=== PATIENT | male | born 1960 | race Caucasian/White ===

== ENCOUNTER → 2021-11-30 16:04 | Outpatient (CLI) | payer BC, SELFPAY ==
[2021-11-30 18:03] LABS: Prostate Specific Antigen 3.61 ng/mL (0.10-4.00)
== END ==
PROVIDERS: PCP Family Medicine; Referring Provider Specialist; Visit Provider Specialist
DX: R97.20 Elevated prostate specific antigen [PSA] (principal); N43.3 Hydrocele, unspecified; N40.1 Benign prostatic hyperplasia with lower urinary tract symptoms; N13.8 Other obstructive and reflux uropathy; R33.9 Retention of urine, unspecified
CPT/HCPCS: 36415; 51798; 81002; 84153; 99214

== ENCOUNTER → 2022-05-03 10:38 | Outpatient (CLI) | payer BC, SELFPAY ==
[2022-05-03 11:12] LABS: Appearance Urine UA SL CLOUDY; Bilirubin Urine UA NEGATIVE (NEGATIVE); Color Urine UA YELLOW; Glucose Urine UA NEGATIVE (Negative); Ketones Urine UA NEGATIVE (NEGATIVE); Leukocyte Esterase Urine UA 3+ (NEGATIVE); Nitrite Urine UA POSITIVE (Negative); Occult Blood Urine UA 3+ (Negative); Protein Urine UA TRACE (Negative); Specific Gravity Urine UA <=1.005 (1.000-1.035); Urobilinogen Urine UA 0.2 E.U./dL (0.2); pH Urine UA 6.5 (4.5-8.0)
[2022-05-03 11:52] LABS: Bacteria Urine Many (>30); Culture Indicated Urine Specimen Cultured; RBC Urine 5-10/HPF (0-5/HPF); WBC Urine 10-30/HPF (0-5/HPF)
== END ==
PROVIDERS: PCP Family Medicine; Visit Provider Specialist
DX: R30.0 Dysuria (principal); R33.9 Retention of urine, unspecified; N40.1 Benign prostatic hyperplasia with lower urinary tract symptoms; N13.8 Other obstructive and reflux uropathy; N35.912 Unspecified bulbous urethral stricture, male
CPT/HCPCS: 52000; 81001; 87077; 87086; 87186

== ENCOUNTER → 2022-05-12 14:01 | Outpatient (CLI) | payer BC, SELFPAY ==
[2022-05-12 15:03] LABS: COVID19 -Nasal RAPID Negative (Negative)
== END ==
PROVIDERS: PCP Family Medicine; Visit Provider Specialist
DX: Z20.822 Contact with and (suspected) exposure to COVID-19 (principal)
CPT/HCPCS: 87635; C9803

== ENCOUNTER 2022-05-15 11:38 | Day surgery (SDC) | payer BC, SELFPAY ==
[2022-05-09 14:46] VITALS: BMI 21.6
[2022-05-15] VITALS (14 sets, daily range): BP systolic 88–132; BP diastolic 53–78; PULSE 56–71; RESP 10–20; TEMP 35.8–36.7; O2SAT 96–100; BMI 21.6
--- NOTE | 2022-05-15 | PATH_ITS ---
[facility] Accession Number: [id number] . 01 Material submitted: . prostate - PROSTATE CHIPS . 01 Diagnosis: Prostate Chips (17 grams), Transurethral Resection: Benign prostatic hyperplasia. No evidence of malignancy. MRV 05/18/2022 1212 Local . 01 Electronically signed: . Tati Lindsey MD, Pathologist NPI- [id number] . 01 Gross description: . Received in formalin labeled with the patient's name and prostate chips consists of 17 grams, multiple fragments of pink-wolfe rubbery soft tissue aggregating to 6.9 x 5.8 x 2.1 cm. The specimen is submitted entirely in cassettes A1-A9. ([id number]) /V 05/16/2022 1642 Local . 01 Pathologist provided ICD-10: R33.9, N40.0 . 01 CPT . 923989 Specimen Comment: A courtesy copy of this report has been sent to [phone] Performed at: [facility] [address] [place] [address], [place], [place] [id number] MD Wilmer Garcia MD Phone: [phone]
[2022-05-15] MEDS: SODIUM CHLORIDE IRRIG SOLUTION 500 ML, NEOMYCIN/POLYMYXIN B IRR 1 ML IRR (12:30)
[2022-05-15] MEDS: LACTATED RINGERS 1,000 ML 100 ML IV (12:34)
[2022-05-15] MEDS: GENTAMICIN 160 MG in SODIUM CHLORIDE 0.9% 100 ML 104 MG IV (12:58)
--- NOTE | 2022-05-15 13:42 | PM.PREOP ---
Pre-operative Note COVID-19 Criteria for continued procedure: Expected advancement of disease process, Increased loss of function, Deterioration of the patient's condition or overall health, Delay expected to result in less-positive ultimate med/surg outcome and Non-surgical alternatives not available or appropriate per current SOC Interval Note History & Physical reviewed/Exam performed by Physician: Yes Changes to H&P: No
[2022-05-15] MEDS: TRANEXAMIC ACID 1,000 MG in SODIUM CHLORIDE 0.9% 100 ML 200 MG IV (14:18)
[2022-05-15] MEDS: AMPICILLIN/SULBACTAM 3 GM 3 GM in SODIUM CHLORIDE 0.9% 100 ML IV (14:20)
--- NOTE | 2022-05-15 14:35 | SUR.OPER ---
Lithotomy on padded OR bed, head on pillow, arms secured on padded arm boards at <90 degrees abduction. Legs secured in padded yellow fins stirrups. Directed and approved by surgeon
[2022-05-15] MEDS: BELLADONNA/OPIUM SUPPOSITORIES 1 EACH PR (14:40)
--- NOTE | 2022-05-15 16:05 | P.OP_ITS ---
Operative Date/Time/Diagnoses Date of procedure: 05/15/22 Time of procedure: 15:45 Pre-op diagnosis: 1. Urinary retention Post-op diagnosis: same Procedure & Clinicians Procedure: 1. Transurethral resection of prostate. Same procedure as scheduled: Yes Indications: 1. Urinary retention Surgeon: Thomas Gonzalez Click Yes if Unassisted: Yes Anesthesia Type: Spinal Operative Notes Findings: 1. Urethra-normal penile and distal bulbar is segment. There is a 20-22 Ivorian annular proximal bulbar stricture gently dilated upon passage of the resectoscope. Closure Type: not applicable Specimen(s): other (TUR prostate chips) Applied: catheter ([address] hematuria catheter to continuous bladder irrigation.) Estimated Blood Loss (mL): 50 Blood products transfused: none Procedure in detail: The patient was positioned in supine following successful placement of spinal anesthetic. The lower abdomen, genitalia, and groin were then prepped and draped in sterile fashion. Resectoscope was then advanced lower urinary tract w ith the findings as described above. The working element was then fitted with the resecting loop. Transurethral incisions were then made at 1 and 11 o'clock. locations to the depth of the capsule from bladder neck to approximately the verumontanum. The intervening anterior adenomatous tissue was then resected. Next, the left lateral lobe was resected from the 1-6 o'clock locations. Next, the right lateral lobe was resected from 11 to 6 o'clock. Resection was conducted from the bladder neck to vicinity adjacent to the verumontanum. Surgical capsule was trans ended and 1 small area at the right anterior and distal aspect of the resection. Hemostasis was attained with electric cautery. Apical kissing lateral lobes were left on resected. All chips and clots were then meticulously removed from the bladder and prostatic fossa using the [employer] he evacuator and with mechanical removal of with the TUR loop. The bladder was then left partially filled and the resectoscope was removed. A [address] hematuria catheter was then advanced in the bladder over a stylet. The balloon was inflated to 30 cc. The catheter was then hand irrigated clear. It was then connected to normal saline continuous bladder irrigation and gravity outflow. The patient was then repositioned in supine, was transferred to [place] [facility], and then was transported to PACU in stable condition. Complications: none Post-operative Condition: stable Disposition: PACU Plan for aftercare: Admit to acute care.
[2022-05-15] MEDS: MEPERIDINE 50 MG/ML INJ 12.5 MG IV ×2 (16:31→16:35)
--- NOTE | 2022-05-15 17:42 | PC.NURSE ---
Assess- Patient admitted to the floor with a TURP. He has a 3 way mallory with NS irrigation infusing through mallory to keep urine color pink to clear colored. He is on LR at 125cc/hr and tolerating this well. He had a spinal and is able to wiggle his feet bilaterally and states that he does have some mild feeling to legs. Patient is eating and tolerating food well. He denies pain and his is at bedside.
[2022-05-15] MEDS: LACTATED RINGERS 1,000 ML 125 ML IV (18:06)
[2022-05-15] MEDS: OXYCODONE IR 5 MG TABLET PO (21:33)
[2022-05-15] MEDS: ACETAMINOPHEN 325 MG TABLET 650 MG PO (23:38)
[2022-05-16] MEDS: LACTATED RINGERS 1,000 ML 125 ML IV (01:46)
[2022-05-16 04:45] VITALS: BP 120/72; PULSE 55; RESP 14; TEMP 36.3; O2SAT 97
--- NOTE | 2022-05-16 06:44 | PC.NURSE ---
Shift Note: Patient was alert and orientedx4, with episodes of penile pain, pain meds given as ordered. No signs of distress. Vital signs are stable and within acceptable limits. On CBI, with pinkish output. Call caldwell within reach.
[2022-05-16 08:00] VITALS: BP 143/82; PULSE 65; RESP 17; TEMP 36.7; O2SAT 99
--- NOTE | 2022-05-16 08:03 | P.DS_ITS ---
History of Present Illness History of Present Illness Date Patient Seen: 05/16/22 Time Patient Seen: 07:30 Chief complaint: OPB Narrative: The patient is a 61-year-old male admitted on 05/15/2022, and underwent uncomplicated transurethral resection of prostate for urinary retention and failure medical therapy. Discharge Providers Provider Discharge Date: 05/16/22 Primary care physician: Ihsan Haque MD Discharge provider: Thomas Gonzalez MD Summary Hospital Course Discharge Diagnosis: 1. Urinary retention. 2. Failure medical therapy. Hospital Course: Patient was admitted on 05/15/2022 and underwent uncomplicated transurethral resection of the prostate under spinal anesthesia. His postoperative course was unremarkable in that he tolerated general diet, was able to ambulate independently, and had no clinical challenges with postoperative pain management. Pathology report was pending at discharge. Status at Discharge Cognitive/behavioral status at discharge: oriented Functional status at discharge: independent ambulation Overall status at discharge: patient is back to baseline Exam Vital Signs (past 8 hours): - 05/16/22 04:45 05/16/22 08:00 Temperature 97.3 F L 98.1 F Pulse Rate 55 L 65 Respiratory Rate 14 17 Blood Pressure 120/72 143/82 H Pulse Oximetry 97 99 Oxygen Flow Rate 0 0 Oxygen Delivery Method Room Air Oxygen Flow Rate 0 Narrative Exam Narrative: Well-developed, well-nourished male in no distress and appearing younger than stated age. Chest-equal unlabored expansion bilaterally. Heart-normal sinus rhythm. Abdomen-nondistended and nontender. Today Clark-out flow is light pink tinged without clots. [facility] Medical History Bilateral hydrocele BPH w urinary obs/LUTS Bulbous urethral stricture Gout Hydrocele Incomplete bladder emptying Right hydrocele Urinary retention Family History Mother Hearing impaired Father Hypertension Social History marital status: number of children: 3 household members: none Previous occupational history: Retired Smoking Status: Never smoker alcohol intake: current caffeine: Yes Type(s) of exercise: walking frequency: daily Discharge Assessment & Plan Assessment and Plan Assessment: 1. Stable postoperative day 1. Status post transurethral resection of prostate. 2. Pathology pending. Plan of Treatment: 1. Discharge home later today. 2. Supervised outpatient voiding trial will be arranged in the Urology Clinic for 05/18/2022. 3. Follow-up by phone when pathology report final. Discharge Plan Discharge Plan Patient Disposition: Home Provider Discharge Comment: Contact the urology clinic later today to schedule voiding trial in the Urology Clinic on 05/18/2022. Discharge orders & Medications Discharge Orders: Discharge (Order); Ordered 05/16/22 Ordered By: Thomas Gonzalez Prescriptions: New cephalexin 250 mg capsule 250 mg PO BID Qty: 10 0RF oxycodone 5 mg tablet 5 mg PO Q4H PRN (Reason: pain) Qty: 14 0RF Continued tamsulosin 0.4 mg capsule 0.4 mg PO DAILY Magnesium Complex 300 mg magnesium tablet 320 mg PO DAILY Follow up/Referrals: Ihsan Haque MD [Primary Care Provider] - Diet/Activity/Treatments Diet: Diet as Tolerated Activity: No lifting greater than 15 lb x 4 weeks. Catheter: 3-way Clark Catheter comment: Use leg bag during day. He has large bag at night and when in home. Skin/Wound/Dressing Care Report to your healthcare provider any signs of infection, such as:: chills, fever, night sweats, increased pain and unusual drainage Visit Report/Discharge Packet Instructions: How to Care for Your Clark Catheter -- Male, DI for Transurethral Resection of the Prostate Stand Alone Forms: Surgery Discharge Discharge Data Primary Care Provider: Ihsan Haque Attending Provider: Thomas Gonzalez VTE Deep Vein Thrombosis/Pulmonary Embolism Present on Admission: No
[2022-05-16 08:06] VITALS: PULSE 71; RESP 16; O2SAT 99
[2022-05-16] MEDS: TAMSULOSIN 0.4 MG CAPSULE PO (08:28)
--- NOTE | 2022-05-16 08:34 | PC.NURSE ---
Patients irrigation to mallory stopped along with ivf. Plug put in end of this. Patients mallory is with tension and patient denies pain but states that he feels irritation. His urine is light pink at this time. We will also walk patient in halls today. will come back around lunch time to see patient again. Before he goes home, will do leg bag teaching.
--- NOTE | 2022-05-16 12:03 | CM.DANOTE ---
DCP Note: Payor: VENKAT Sims PCP: MD Garland Pt is a 61 y.o. M admitted for status post TURP. Pt has past medical history of BPH, gout, hydrocele bilateral, Urinary retention. Per MD, pt is medically stable for discharge this afternoon. DCP met with pt this afternoon bedside. Pt was sitting up in chair watching TV. DCP introduced herself and role. Pt states that he is independent at baseline. Pt states he still drives POV. Pt states that he lives in a 1 story house in [place]. Pt states that his sister or brother is going to pick him up today once he is discharged. Pt declines any needs at this time. White board updated and instructed to call with any other questions that may arise. P: Once pt is medically clear this afternoon, pt is to discharge home via sister or brother POV. Callie Machuca RN/ZAIRA Discharge Planning/Care Management Advanced directive, confirm from FAMILY Start: 05/15/22 17:27 Freq: Q24H Status: Active Protocol: Document 05/15/22 17:31 CLL (Rec: 05/15/22 17:36 CLL [id number]) Advance Directive, confirm on record Time 17:36 Person contacted Patient Copy received No CM Discharge Assessment Start: 05/16/22 12:02 Freq: Status: Active Protocol: Document 05/16/22 12:02 AJ (Rec: 05/16/22 12:03 AJ [id number]) Discharge Planning Assessment Assigned Biopharmaceutical Rep Callie Machuca RN/ZAIRA Advance Directives? Yes Advance Directives on File No History Provided By Patient Prior Living Arrangements House Household Members none Type of transporation used prior to Drives own vehicle admit Independent with ADL's Yes Is patient alert and oriented? Yes Caregiver for Another No DME Already Rented / Owned FWW / Walker Barriers to Discharge No Discharge Plan Home Referrals Initiated None needed Whiteboard Updated in Patient Room with Yes name and ext. # of Biopharmaceutical Rep Comment Instructed to call Review Status In Process Please Provide Date Initial DC 05/16/22 Assessment Was Performed Next Review Type Continued Stay Review Pre-Anesthesia Assessment Start: 05/09/22 14:46 Freq: Status: Active Protocol: Document 05/09/22 14:46 CAB (Rec: 05/09/22 14:51 CAB [id number]) Pre-Anesthesia Assessment Patient Information Reviewed Via Chart Review Comment COVID screen @ 05/12/22 Primary Care Provider Ihsan Haque Seen Specialist in Last 12 Months Yes Specialist Seen Urologist Primary Language Czech [employer] Sportscaster Required No Height 180.34 cm Weight 70.307 kg Body Mass Index (BMI) 21.6 Barriers to Learning None Anesthesia Review Requested No Stonemason Supervisor No alcohol intake current alcohol intake frequency a few times a month Smoking Status Never smoker History of Falling (Recent or History of No ) Patient is completely paralyzed or No completely immobile Mental Status Oriented to own ability Hx Sleep Apnea No Currently Taking a Beta Raul No Anti-Coagulant Therapy No Cardiac Testing No Hx Pacemaker/ICD No Pacemaker Rep Required? No Bladder Pattern Retention Urinary Catheter Present Yes Diabetes No Presence of External or Internal Medical Yes: Catheter Devices Marital Status Single Patient Discharge Plan Description Return Home
[2022-05-16] MEDS: ACETAMINOPHEN 325 MG TABLET 650 MG PO (12:38)
== END 2022-05-16 13:30 | disposition home or self-care (01) ==
LOC: OR 11:40 → AC 11:40
PROVIDERS: PCP Family Medicine; Referring Provider Specialist; Visit Provider Specialist
PROC: 0VT08ZZ Resection of Prostate, Via Natural or Artificial Opening Endoscopic (ICD-10-PCS; CPT 52601; principal; 2022-05-15 13:15)
DX: R33.9 Retention of urine, unspecified (principal); N40.1 Benign prostatic hyperplasia with lower urinary tract symptoms; N13.8 Other obstructive and reflux uropathy
CPT/HCPCS: 52601; 82962; 94762; J0295; J2175; J2250; J2704; J3010

== ENCOUNTER → 2022-06-29 10:19 | Outpatient (CLI) | payer BC, SELFPAY ==
[2022-05-15 17:19] VITALS: BMI 21.6
== END ==
PROVIDERS: PCP Family Medicine; Visit Provider Specialist
DX: Z09 Encounter for follow-up examination after completed treatment for conditions other than malignant neoplasm (principal); N40.1 Benign prostatic hyperplasia with lower urinary tract symptoms; N13.8 Other obstructive and reflux uropathy; R30.0 Dysuria
CPT/HCPCS: 51798; 81002; 87086